=== PATIENT | female | born 2000 | race Caucasian/White ===

== ENCOUNTER 2023-07-11 14:02 | Outpatient (RCR) | payer BC | END 2023-07-26 | disposition home or self-care (01) | LOC: PT | DX: M25.572 Pain in left ankle and joints of left foot (principal); Z98.890 Other specified postprocedural states ==

== ENCOUNTER 2023-08-01 08:00 | Outpatient (RCR) | payer BC | END 2023-08-26 | disposition home or self-care (01) | LOC: PT | DX: M25.572 Pain in left ankle and joints of left foot (principal); Z98.890 Other specified postprocedural states ==

== ENCOUNTER 2023-08-28 08:00 | Outpatient (RCR) | payer BC | END 2023-09-25 17:00 | disposition home or self-care (01) | LOC: PT 08:00 | DX: M25.572 Pain in left ankle and joints of left foot (principal); Z98.890 Other specified postprocedural states ==